=== PATIENT | female | born 1945 | race Caucasian/White ===

== ENCOUNTER → 2016-06-08 | Outpatient (CLI) | payer OTHER | LOC: KOH-I 10:39 | DX: R05 Cough (principal); J43.9 Emphysema, unspecified | CPT/HCPCS: 71020 ==

== ENCOUNTER → 2020-08-29 | Outpatient (CLI) | payer MEDICARE ==
[~2020-08-29] MED LIST: SYNTHROID112 MCG PO
== END ==
LOC: KOH-I 15:07
DX: R05 Cough (principal)
CPT/HCPCS: 71046

== ENCOUNTER → 2020-12-23 | Outpatient (CLI) | payer MEDICARE | LOC: KOH-I 16:06 | DX: M25.511 Pain in right shoulder (principal); M25.512 Pain in left shoulder | CPT/HCPCS: 73030 ==

== ENCOUNTER → 2021-02-11 | Outpatient (CLI) | payer MEDICARE | LOC: KOH-I 16:02 | DX: V89.2XXA Person injured in unspecified motor-vehicle accident, traffic, initial encounter (principal) | CPT/HCPCS: 71046 ==